=== PATIENT | female | born 1955 | race Caucasian/White ===

== ENCOUNTER 2017-01-11 11:39 | Emergency (ER) | payer OTHER ==
[~2017-01-11] VITALS: Ht 157.4 cm; Wt 72.6 kg
== END 2017-01-11 14:32 | disposition home or self-care (01) ==
LOC: ED 11:39
DX: S13.4XXA Sprain of ligaments of cervical spine, initial encounter (principal); S40.011A Contusion of right shoulder, initial encounter; V89.2XXA Person injured in unspecified motor-vehicle accident, traffic, initial encounter; Y92.89 Other specified places as the place of occurrence of the external cause; Y93.89 Activity, other specified; Y99.8 Other external cause status